=== PATIENT | male | born 1965 | race Caucasian/White ===

== ENCOUNTER 2016-10-20 08:50 | Emergency (ER) | payer MEDICAID ==
[~2016-10-20] VITALS: Ht 180.3 cm; Wt 86.2 kg
[~2016-10-20 08:50] MED LIST: IBUP-1481 PO
[2016-10-20] MEDS ORDERED: BACI/NEOM/POLY B OINT PKT 1 UDPKT PACKET TP ONE (09:30)
[2016-10-20] MEDS ORDERED: BACI/NEOM/POLY B OINT PKT 1 UDPKT PACKET ONE (09:54)
[2016-10-20 09:58] VITALS: BP 134/72
== END 2016-10-20 09:58 | disposition home or self-care (01) ==
LOC: ER 08:51
DX: S41.151A Open bite of right upper arm, initial encounter (principal); W54.0XXA Bitten by dog, initial encounter; Y93.89 Activity, other specified; Y92.89 Other specified places as the place of occurrence of the external cause; Y99.8 Other external cause status
CPT/HCPCS: 99283; A4606; A6402; A6403; Z7610